=== PATIENT | female | born 1940 | race Caucasian/White ===

== ENCOUNTER 2022-12-16 14:57 | Outpatient (CLI) | payer MEDICARE, OTHER | END 2022-12-16 14:58 | disposition home or self-care (01) | LOC: DI 14:57 | PROVIDERS: ATTEND Physician Assistant Medical | DX: R01.1 Cardiac murmur, unspecified (principal); I51.7 Cardiomegaly | CPT/HCPCS: 93306 ==

== ENCOUNTER 2022-12-16 15:01 | Outpatient (CLI) | payer MEDICARE, OTHER ==
--- NOTE | 2022-12-17 08:36 | Ultrasound Report ---
PROCEDURE: Duplex Lwr Ext Arterial Bilat INDICATIONS: INTERMITTENT CLAUDICATION TECHNIQUE: Color and pulse Doppler interrogation was performed of both lower extremity arterial systems, with im age documentation. Limited exam secondary to atherosclerotic calcification. COMPARISON: None FINDINGS: Right lower extremity: Common femoral artery: 99.6 cm/sec, with triphasic flow. Deep femoral artery: 92 cm/sec, with biphasic flow. Proximal superficial femoral artery: 95.4 cm/sec, with biphasic flow. Mid superficial femoral artery (proximal/mid): 211.5/172.9 cm/sec, with biphasic/biphasic flow. Distal superficial femoral artery: 252 cm/sec, with biphasic flow. Popliteal artery: 59 cm/sec, with biphasic flow. Posterior tibial artery: 92 cm/sec, with biphasic flow. Anterior tibial artery/dorsalis pedis: 58.4/40.6 cm/sec, with biphasic/biphasic flow. Platt-scale imaging description: Scattered atherosclerotic calcification with stenoses. Left lower extremity: Common femoral artery: 96 cm/sec, with biphasic flow. Deep femoral artery: 78.6 cm/sec, with biphasic flow. Proximal superficial femoral artery: 129 cm/sec, with monophasic flow. Mid superficial femoral artery: 102 cm/sec, with monophasic flow. Scattered areas of biphasic flow. Distal superficial femoral artery: 38.1 cm/sec, with monophasic flow. Popliteal artery: 35.3 cm/sec, with monophasic flow. Posterior tibial artery: 27 cm/sec, with monophasic flow. Anterior tibial artery/dorsalis pedis: 61/9 cm/sec, with monophasic/monophasic flow. Platt-scale imaging description: Scattered atherosclerotic calcification with stenoses. A few collate rals below the knee. IMPRESSION: 1. Right lower extremity: -Stenosis of approximately 50-75% in the proximal to mid SFA with elevated velocity ratio of 2.2. -Elevated velocity in the distal SFA of 252 cm/sec is suggestive of an additional stenosis/turbulence . -Multiphasic waveforms with scattered atherosclerotic calcification with multifocal stenoses. 2. Left lower extremity: -No velocity shift to suggest a hemodynamically significant stenosis; however, predominantly monophas ic waveforms throughout the vasculature may represent sequela of aortoiliac inflow disease. -Scattered atherosclerotic calcification with multifocal stenoses and a few collaterals below the kne es suggestive of high-grade stenosis/occlusion. Consider a CTA lower extremity runoff for further evaluation. Reviewed by: Lisa Vergara MD on 12/17/2022 8:35 AM PDT Approved by: Lisa Vergara MD on 12/17/2022 8:35 AM PDT Station ID: [id number]
--- NOTE | 2022-12-17 09:02 | Ultrasound Report ---
PROCEDURE: Ankle Brachial Index INDICATIONS: INTERMITTENT CLAUDICATION TECHNIQUE: Ankle-brachial indices were obtained bilaterally and recorded. COMPARISONS: Same day lower extremity arterial duplex scan. FINDINGS: Right ankle brachial index (MARLENE): 0.9 Right brachial: 152 mmHg Right Ankle: 139 mmHg Left ankle brachial index (MARLENE): 0.6 Left brachial: 154 mmHg Left ankle: 106 mmHg Healing potential: Ankle pressures >55 mm Hg in non-diabetics and >80 mm Hg in diabetics are likely to achieve primary h ealing of ischemic foot ulcers. Toe pressures >30 mm Hg are likely to achieve primary healing of ischemic foot ulcers, toe or transme tatarsal amputations. IMPRESSION: 1. Right lower extremity resting MARLENE is borderline normal at 0.9, likely falsely elevated in the sett ing of calcified vessels. 2. Left lower extremity resting MARLENE is moderately reduced at 0.6, likely falsely elevated in the sett ing of calcified vessels. Reviewed by: Lisa Vergara MD on 12/17/2022 9:01 AM PDT Approved by: Lisa Vergara MD on 12/17/2022 9:01 AM PDT Station ID: [id number]
== END 2022-12-16 15:02 | disposition home or self-care (01) ==
LOC: DI 15:01
PROVIDERS: ATTEND Physician Assistant Medical
DX: I70.203 Unspecified atherosclerosis of native arteries of extremities, bilateral legs (principal); R01.1 Cardiac murmur, unspecified; I51.7 Cardiomegaly
CPT/HCPCS: 93306; 93922; 93925

== ENCOUNTER 2023-02-25 13:47 | Outpatient (CLI) | payer MEDICARE, OTHER ==
[2023-02-25 19:58] LABS: CREATININE 0.8 mg/dL (0.6-1.3); POTASSIUM 4.4 mmol/L (3.5-4.5)
[2023-02-25 20:58] LABS: ESTIMATED AVERAGE GLUCOSE 209 mg/dL (70-100); HEMOGLOBIN A1c% 8.9 % (4.27-6.07)
== END 2023-02-25 13:48 | disposition home or self-care (01) ==
LOC: LAB.S 13:47
PROVIDERS: ATTEND Physician Assistant Medical
DX: E11.9 Type 2 diabetes mellitus without complications (principal); Z79.4 Long term (current) use of insulin
CPT/HCPCS: 36415; 80048; 83036

== ENCOUNTER 2023-05-03 12:41 | Outpatient (CLI) | payer MEDICARE, OTHER ==
--- NOTE | 2023-05-04 09:01 | Mammography Report ---
BILATERAL DIGITAL DIAGNOSTIC MAMMOGRAM 3D/2D: 05/03/2023 CLINICAL: Palpable right breast lump. Due for bilateral exam. Comparison is made to exams dated: 12/08/2021 mammogram, 03/20/2019 mammogram, 03/22/2017 mammogram, mammogram, and 12/27/2013 mammogram - [facility]. There are scattered areas of fibroglandular density in both breasts (category b / 25%-50% glandular t issue). There is a focal asymmetry in the right breast at 4 o'clock posterior depth. This is seen in additio nal views. This correlates as palpated. There is an irregular mass with a spiculated margin in the left breast at 1 o'clock posterior depth. This is seen in additional views. No other significant masses or calcifications are seen in either breast. IMPRESSION: INCOMPLETE: NEEDS ADDITIONAL IMAGING EVALUATION The focal asymmetry in the right breast at 4 o'clock posterior depth is indeterminate. The irregular mass in the left breast at 1 o'clock posterior depth is indeterminate. A targeted ultrasound of the bilateral breasts is recommended and will be performed immediately follo wing this exam. Based on the Tyrer Cuzick model (a risk assessment model) the patient's lifetime risk is 1.8% and her 10 year risk is 0.0%. According to the ACR, ACS, and NCCN guidelines, an annual breast MRI exam elvira g with mammogram is recommended if the patient's lifetime risk is 20% or greater. This exam was interpreted at Station ID: [id number]. NOTE: For mammograms, a report in lay terms will be sent to the patient. Approximately 15% of breast malignancies will not be visualized mammographically. In the management of a palpable breast mass, a negative mammogram must not discourage biopsy of a clinically suspicious lesion. Electronically Signed By: Viridiana Thomas M.D. lk/:05/03/2023 13:34:05 ACR BI-RADS Category 0: Incomplete 3340F PARENCHYMAL PATTERN: (A) - The breast(s) demonstrate(s) scattered fibroglandular densities. BI-RADS CATEGORY: (0) - 0 Ultrasound [id number] Immediate follow-up LATERALITY: (B)
--- NOTE | 2023-05-04 09:01 | Ultrasound Report ---
LIMITED ULTRASOUND OF LEFT BREAST: 05/03/2023 CLINICAL: Patient returns today to evaluate a focal asymmetry in the left breast. Comparison is made to exams dated: 05/03/2023 mammogram - [facility], 12/08/2021 ma mmogram, 03/20/2019 mammogram, 03/22/2017 mammogram, 03/04/2015 mammogram, and 12/27/2013 mammogram - [facility]. Color flow ultrasound of the left breast 2 o'clock region was performed on the areas of interest. G ray scale images of the real-time examination were reviewed. There is a 0.6 cm irregular mass in the left breast at 2 o'clock middle depth. This irregular mass i s hypoechoic with posterior acoustic shadowing. This correlates as an incidental finding. There also is a stable 0.6 cm irregular mass in the left breast at 2 o'clock posterior depth. This i rregular mass is hypoechoic with posterior acoustic shadowing. This correlates with mammography find ings. The left axilla was interogated and normal appearing lymph nodes are visualized. IMPRESSION: SUSPICIOUS OF MALIGNANCY No left axillary adenopathy. The 0.6 cm irregular mass in the left breast at 2 o'clock middle depth is at a low suspicion for radha gnancy. An ultrasound guided biopsy is recommended. The stable 0.6 cm irregular mass in the left breast at 2 o'clock posterior depth is at a low suspicio n for malignancy. An ultrasound guided biopsy is recommended. This exam was interpreted at Station ID: [id number]. SUMMARY: This was discussed with the patient by the radiologist at the time of the exam. Electronically Signed By: Viridiana Thomas M.D. lk/:05/03/2023 14:49:09 Ultrasound BI-RADS: 4a Low suspicion for malignancy BI-RADS CATEGORY: (4a) - Low Susp Biopsy follow-up [id number] Immediate follow-up LATERALITY: (B)
--- NOTE | 2023-05-04 09:01 | Ultrasound Report ---
LIMITED ULTRASOUND OF RIGHT BREAST: 05/03/2023 CLINICAL: Palpable right breast lump. Comparison is made to exams dated: 05/03/2023 mammogram - , 12/08/2021 ma mmogram, 03/20/2019 mammogram, 03/22/2017 mammogram, 03/04/2015 mammogram, and 12/27/2013 mammogram - [facility]. Color flow ultrasound of the right breast 3 o'clock region was performed on the areas of interest. G ray scale images of the real-time examination were reviewed. There is a 0.7 cm x 0.5 cm x 0.7 cm oval cyst in the right breast at 3 o'clock posterior depth. This oval cyst is hypoechoic with a well-defined boundary, internal echoes, and posterior acoustic enhanc ement. A tract extends to the skin surface. This correlates as palpated and with mammography findings . Color flow imaging demonstrates that there is no vascularity present. IMPRESSION: BENIGN There is no sonographic evidence of malignancy. The 0.7 cm x 0.5 cm x 0.7 cm oval cyst in the right breast is consistent with a sebaceous cyst and is benign. Return to annual mammogram screening schedule is recommended. This exam was interpreted at Station ID: [id number]. Electronically Signed By: Viridiana Thomas M.D. lk/:05/03/2023 17:34:40 Ultrasound BI-RADS: 2 Benign BI-RADS CATEGORY: (2) - 2 RECOMMENDATION: (ANNUAL) - Recommend routine annual screening mammography. [id number] return to screening LATERALITY: (B)
== END 2023-05-03 12:42 | disposition home or self-care (01) ==
LOC: DI 12:41
PROVIDERS: ATTEND Physician Assistant Medical
DX: N60.01 Solitary cyst of right breast (principal); N63.21 Unspecified lump in the left breast, upper outer quadrant; R92.323 Mammographic fibroglandular density, bilateral breasts

== ENCOUNTER 2023-05-26 11:39 | Outpatient (CLI) | payer MEDICARE, OTHER ==
[2023-05-26 14:37] LABS: BASOPHILS # (AUTO) 0.1 10^3/uL (0.0-0.1); BASOPHILS % (AUTO) 1.3 %; EOSINOPHILS # (AUTO) 0.2 10^3/uL (0.0-0.7); EOSINOPHILS % (AUTO) 3.3 %; HCT - HEMATOCRIT 42.9 % (37.0-47.0); HGB - HEMOGLOBIN 13.3 g/dL (12.0-16.0); LYMPHOCYTES % (AUTO) 31.1 %; MEAN CORPUSCULAR HEMOGLOBIN 26.8 pg (27.0-31.0); MEAN CORPUSCULAR VOLUME 86.3 fL (81.0-99.0); MEAN PLATELET VOLUME 9.8 fL (7.9-10.8); MONOCYTES # (AUTO) 0.6 10^3/uL (0.0-1.0); MONOCYTES % (AUTO) 9.6 %; NEUTROPHILS # (AUTO) 3.5 10^3/uL (1.5-6.6); NEUTROPHILS % (AUTO) 54.4 %; PLT - PLATELET COUNT 500 10^3/uL (130-450); RED BLOOD COUNT 4.97 10^6/uL (4.20-5.40); RED CELL DISTRIBUTION WIDTH 15.3 % (12.0-15.0); WHITE BLOOD COUNT 6.4 x10^3/uL (4.8-10.8)
[2023-05-26 15:14] LABS: THYROID STIMULATING HORMONE 3.44 uIU/mL (0.34-5.60)
[2023-05-26 16:07] LABS: ALBUMIN 3.9 g/dL (3.2-5.5); ALBUMIN/GLOBULIN RATIO 1.3 (1.0-2.2); ALKALINE PHOSPHATASE 45 IU/L (42-121); ALT ALANINE AMINOTRANSFERASE 10 IU/L (10-60); AST ASPARTATE AMINOTRANSFERASE 14 IU/L (10-42); BILIRUBIN,TOTAL 0.5 mg/dL (0.2-1.0); BUN - BLOOD UREA NITROGEN 12 mg/dL (6-20); CALCIUM 10.2 mg/dL (8.5-10.3); CARBON DIOXIDE - CO2 23 mmol/L (21-32); CHLORIDE 107 mmol/L (101-111); CHOL/HDL RATIO 3.9 (<4.4); CHOLESTEROL 185 mg/dL; CREATININE 0.8 mg/dL (0.6-1.3); GFR - MDRD 69 (>89); GLUCOSE 132 mg/dL (74-104); HDL CHOLESTEROL 48 mg/dL; LDL CHOLESTEROL,CALCULATED 92 mg/dL; LDL/HDL RATIO 1.9 (<4.4); POTASSIUM 3.9 mmol/L (3.5-4.5); SODIUM 139 mmol/L (135-145); TOTAL PROTEIN 6.8 g/dL (6.4-8.9); TRIGLYCERIDES 224 mg/dL (48-352); VLDL CHOLESTEROL 45 mg/dL
[2023-05-26 20:25] LABS: ESTIMATED AVERAGE GLUCOSE 174 mg/dL (70-100); HEMOGLOBIN A1c% 7.7 % (4.27-6.07)
== END 2023-05-26 11:40 | disposition home or self-care (01) ==
LOC: LAB.S 11:39
PROVIDERS: ATTEND Physician Assistant Medical
DX: E11.9 Type 2 diabetes mellitus without complications (principal); E78.5 Hyperlipidemia, unspecified; Z79.4 Long term (current) use of insulin
CPT/HCPCS: 36415; 80053; 80061; 83036; 83721; 84443; 85025

== ENCOUNTER 2023-06-02 09:33 | Outpatient (CLI) | payer MEDICARE, OTHER ==
[~2023-06-02 09:33] MED LIST: LIDOCAINE 1%-EPI 1:100000 20 ML MDV ONE; LIDOCAINE-MPF 1% 5 ML VIAL ONE
[2023-06-02] MEDS: LIDOCAINE-MPF 1% 5 ML VIAL TD ONE (11:39)
[2023-06-02] MEDS: LIDOCAINE 1%-EPI 1:100000 20 ML MDV SUBQ ONE (11:40)
--- NOTE | 2023-06-03 09:42 | Mammography Report ---
UNILATERAL LEFT DIGITAL DIAGNOSTIC MAMMOGRAM 3D/2D WITH EXAGGERATED CC - LEFT BREAST POST-PROCEDURE I MAGING FOR MARKER PLACEMENT: 06/02/2023 CLINICAL: Post left breast ultrasound biopsy clip placement imaging. Comparison is made to exams dated: 05/03/2023 ultrasound, 05/03/2023 ultrasound, 05/03/2023 mammogram - [facility], 12/08/2021 mammogram - [facility], 06/02/2023 ultrasound biopsy, and 06/02/2023 ultrasound biopsy - [facility]. There are scattered areas of fibroglandular density in the left breast (category b / 25%-50% glandula r tissue). There is a Hydromark T3 marker clip in the appropriate position in the left breast at 2 o'clock poste rior depth. This marker clip placement is at the medial aspect of the biopsy site. There also is a Hydromark T4 marker clip in the appropriate position in the left breast at 1:30 o'fer ck middle depth. This marker clip placement is at the biopsy site. IMPRESSION: POST PROCEDURE MAMMOGRAM FOR MARKER PLACEMENT There was a successful Hydromark B1adwsna clip placement in the left breast at 2 o'clock posterior de pth, with clip at the medial border of the biopsy site. There was a successful Hydromark T4 marker clip placement in the left breast at 1:30 o'clock middle d epth. Based on the Tyrer Cuzick model (a risk assessment model) the patient's lifetime risk is 1.8% and her 10 year risk is 0.0%. According to the ACR, ACS, and NCCN guidelines, an annual breast MRI exam elvira g with mammogram is recommended if the patient's lifetime risk is 20% or greater. This exam was interpreted at Station ID: [id number]. NOTE: For mammograms, a report in lay terms will be sent to the patient. Approximately 15% of breast malignancies will not be visualized mammographically. In the management of a palpable breast mass, a negative mammogram must not discourage biopsy of a clinically suspicious lesion. Electronically Signed By: Marco Antonio Boudreaux M.D. ar/:06/02/2023 22:09:17 ACR BI-RADS Category Post-procedure mammogram for marker placement PARENCHYMAL PATTERN: (A) - The breast(s) demonstrate(s) scattered fibroglandular densities. BI-RADS CATEGORY: () - Unspecified - other recall n/a LATERALITY: (B)
--- NOTE | 2023-06-08 07:37 | Ultrasound Report ---
ULTRASOUND GUIDED BIOPSY LEFT BREAST USING VACUUM DEVICE WITH MARKING DEVICE INSERTED AND POST DIGITA L MAMMOGRAPHIC IMAGIN06/02/2023 CLINICAL: Left breast mass. PATIENT CONSENT: Risks (minor bleeding, infection, vasovagal reaction and repeat procedure), benefits and alternatives were explained to the patient and written informed consent was obtained. Correlation is made to exams dated: 05/03/2023 ultrasound, 05/03/2023 mammogram - [facility], 12/08/2021 mammogram, 03/20/2019 mammogram, and 03/22/2017 mammogram - [facility]. Separate biopsies were performed for two adjacent masses seen on the prior ultrasound. For clarity, t he more posterior lesion is described at the 2:00 position posterior depth and the more superficial a nd medial lesion is described at the 1:30 position anterior/middle depth. An ultrasound guided biopsy using real-time ultrasound was performed for the 0.5 cm x 0.7 cm x 0.3 cm solid mass located in the left breast at 1:30 o'clock middle depth 6 cm from the nipple. This was d escribed on the previous mammography and ultrasound reports. The skin was prepped in the usual maxi r. Local anesthetic was administered to the access site. A skin raquel was made in the breast. The a bnormality was approached from the lateral aspect. A 13 gauge biopsy needle was placed adjacent to t he abnormality under ultrasound guidance. Once the needle was documented to be in the correct locati on, four specimens were obtained using the Mammotome biopsy system. A Hydromark T4 marker clip was i nserted into the biopsy cavity. A sterile dressing was applied to the access site. Post procedure d igital mammographic imaging demonstrates the location device at the targeted area. The specimens wer e sent to the laboratory for pathological analysis. IMPRESSION: ULTRASOUND GUIDED BIOPSY BENIGN Ultrasound guided biopsy of the 0.5 cm x 0.7 cm x 0.3 cm solid mass in the left breast at 1:30 o'cloc k middle depth 6 cm from the nipple was successful with no apparent post procedure complications. Pathology revealed benign dense stromal fibrosis, which is concordant with imaging. Patient has ipsil ateral breast cancer at 2 o'clock, 6 cm from the nipple at posterior depth. Please see separately dic tated same day biopsy report for further details. This exam was interpreted at Station ID: [id number]. Marco Antonio Boudreaux M.D. Yessenia Raymond M.D., Ph.D. jam lozada/:06/07/2023 15:51:34 BI-RADS CATEGORY: () - Unspecified - other recall n/a LATERALITY: (B)
--- NOTE | 2023-06-08 07:37 | Ultrasound Report ---
ULTRASOUND GUIDED BIOPSY LEFT BREAST USING VACUUM DEVICE WITH MARKING DEVICE INSERTED AND POST DIGITA L MAMMOGRAPHIC IMAGIN06/02/2023 CLINICAL: Left breast mass. PATIENT CONSENT: Risks (minor bleeding, infection, vasovagal reaction and repeat procedure), benefits and alternatives were explained to the patient and written informed consent was obtained. Correlation is made to exams dated: 05/03/2023 ultrasound, 05/03/2023 mammogram - [facility], 12/08/2021 mammogram, and 03/20/2019 mammogram - [facility]. Separate biopsies were performed for two adjacent masses seen on the prior ultrasound. For clarity, t he more posterior lesion is described at the 2:00 position posterior depth and the more superficial a nd medial lesion is described at the 1:30 position anterior/middle depth. An ultrasound guided biopsy using real-time ultrasound was performed for the 0.6 cm x 0.5 cm x 0.5 cm mass located in the left breast at 2 o'clock posterior depth 6 cm from the nipple. This was describ ed on the previous mammography and ultrasound reports. The skin was prepped in the usual manner. Lo toi anesthetic was administered to the access site. A skin raquel was made in the breast. The abnorma lity was approached from the lateral aspect. A 13 gauge biopsy needle was placed adjacent to the abn ormality under ultrasound guidance. Once the needle was documented to be in the correct location, fo ur specimens were obtained using the Mammotome biopsy system. A Hydromark T3 marker clip was inserte d into the biopsy cavity. A sterile dressing was applied to the access site. Post procedure digital mammographic imaging demonstrates the location device at the targeted area. The specimens were sent to the laboratory for pathological analysis. IMPRESSION: ULTRASOUND GUIDED BIOPSY MALIGNANT Ultrasound guided biopsy of the 0.6 cm x 0.5 cm x 0.5 cm mass in the left breast at 2 o'clock posteri or depth 6 cm from the nipple was successful with no apparent post procedure complications. 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 Recom mend surgical and oncological consultation. This exam was interpreted at Station ID: [id number]. Marco Antonio Boudreaux M.D. Yessenia Raymond M.D., Ph.D. jam lozada/:06/07/2023 15:47:48 BI-RADS CATEGORY: () - Unspecified - other recall n/a LATERALITY: (B)
== END 2023-06-02 09:34 | disposition home or self-care (01) ==
LOC: DI 09:33
PROVIDERS: ATTEND Physician Assistant Medical
DX: R92.322 Mammographic fibroglandular density, left breast (principal); N60.32 Fibrosclerosis of left breast; C50.412 Malignant neoplasm of upper-outer quadrant of left female breast; Z17.0 Estrogen receptor positive status [ER+]
CPT/HCPCS: 19083; 19084

== ENCOUNTER 2023-06-28 06:42 | Day surgery (SDC) | payer MEDICARE, OTHER ==
[~2023-06-28 06:42] MED LIST changes: -LIDOCAINE 1%-EPI 1:100000 20 ML MDV ONE
[2023-06-28] MEDS ORDERED: ceFAZolin 2 GM VIAL ONE (07:03)
[2023-06-28] MEDS ORDERED: PROPOFOL 200 MG/20 ML VIAL IVP ONE (09:18)
[2023-06-28] MEDS ORDERED: fentaNYL 100 MCG/2 ML VIAL ONE (09:19)
[2023-06-28] MEDS: ACETAMINOPHEN 500 MG TABLET PO ONE (09:24)
--- NOTE | 2023-06-28 10:20 | ANESTHESIA ---
Pre-Anesthesia VS, & Labs - Diagnosis Left invasive ductal carcinoma - Procedure left breast lumpectomy with wire localization Vital Signs: Temp Pulse Resp BP Pulse Ox O2 Flow Rate 36.8 C 78 13 167/79 H 96 06/28/23 07:27 06/28/23 07:27 06/28/23 07:27 06/28/23 07:27 06/28/23 07:27 Height: 5 ft Weight (kg): 84.5 kg Body Mass Index: 36.3 BMI Classification: Obese - NPO >8 hours - Is Patient ?: No - Lab Results Current Lab Results: Laboratory Tests 06/28/23 07:33: POC Whole Bld Glucose 148 H Home Medications and Allergies Home Medications: Ambulatory Orders Aspirin [Vazalore] 81 mg PO DAILY 06/22/23 Atorvastatin [Lipitor] 20 mg PO QPM 06/22/23 Benazepril HCl [Lotensin] 40 mg PO DAILY 06/22/23 FLUoxetine [PROzac] 30 mg PO DAILY 06/22/23 Fenofibrate [Lipofen] 50 mg PO DAILY 06/22/23 Insulin Aspart [Novolog Flexpen] 15 units SUBQ QID 06/22/23 Insulin Glargine,Hum.rec.anlog [Basaglar Kwikpen U-100] 30 unit SUBQ HS 06/22/23 Omeprazole 20 mg PO BID 06/22/23 amLODIPine [Norvasc] 10 mg PO DAILY 06/22/23 metFORMIN [Glucophage] 500 mg PO BID 06/22/23 Aspirin [Vazalore] 81 mg PO DAILY 06/22/23 Atorvastatin [Lipitor] 20 mg PO QPM 06/22/23 Benazepril HCl [Lotensin] 40 mg PO DAILY 06/22/23 FLUoxetine [PROzac] 30 mg PO DAILY 06/22/23 Fenofibrate [Lipofen] 50 mg PO DAILY 06/22/23 Insulin Aspart [Novolog Flexpen] 15 units SUBQ QID 06/22/23 Insulin Glargine,Hum.rec.anlog [Basaglar Kwikpen U-100] 30 unit SUBQ HS 06/22/23 Omeprazole 20 mg PO BID 06/22/23 amLODIPine [Norvasc] 10 mg PO DAILY 06/22/23 metFORMIN [Glucophage] 500 mg PO BID 06/22/23 Allergies/Adverse Reactions: Allergies Allergy/AdvReac Type Severity Reaction Status Date / Time Penicillins Allergy Unknown Verified 06/28/23 07:33 tetracycline Allergy Unknown Verified 06/28/23 07:33 morphine AdvReac Hallucinati Verified 06/22/23 10:05 ons pregabalin [From Lyrica] AdvReac Edema Verified 06/28/23 07:32 Anes History & Medical History - Anesthetic History Anesthesia Complications: reports: No previous complications - Medical History Cardiovascular: reports: Hypertension, High cholesterol, Murmur Pulmonary: reports: Sleep apnea (does not use cpap) Gastrointestinal: reports: GERD, Pancreatitis, Ulcerative colitis Urinary: reports: None Neuro: reports: None Musculoskeletal: reports: Osteoarthritis, Osteoporosis Endocrine/Autoimmune: reports: Type 2 diabetes Skin: reports: Rosacea Smoking Status: Never smoker Psychosocial: reports: No issues indicated History of Cancer?: Yes - Surgical History Eyes Ears Nose Throat (EENT): reports: Tonsil/Adenoidectomy Gynecologic: reports: section Results - Echo Results Echo Results: Report reviewed Exam General: Alert, Oriented x3, Cooperative, No acute distress Dental: WNL Mouth Openin Fingerbreadth Neck Mobility: Normal Mallampati classification: II Thyromental Distance: 4-6 cm Mental/Cognitive Status: Alert/Oriented X3, Normal for patient Plan Anesthesia Type: General Consent for Procedure(s) Verified and Reviewed: Yes Code Status: Attempt Resuscitation ASA classification: 3-Severe systemic disease Is this case an emergency?: No
[2023-06-28] MEDS ORDERED: fentaNYL 100 MCG/2 ML VIAL IVP PRN (10:22)
[2023-06-28] MEDS ORDERED: ONDANSETRON 4 MG/2 ML VIAL IVP PRN ×2 (10:22→12:49)
[2023-06-28] MEDS ORDERED: ATROPINE ABBOJECT 1 MG/10 ML SYRINGE IVP PRN (10:22)
[2023-06-28] MEDS ORDERED: HYDROmorphone 0.5 MG/0.5 ML SYRINGE IVP PRN ×2 (10:22→12:49)
[2023-06-28] MEDS ORDERED: NALOXONE 0.4 MG/ML VIAL IVP PRN (10:22)
[2023-06-28] MEDS ORDERED: SUCCINYLCHOLINE 200 MG/10 ML VIAL ONE (10:41)
[2023-06-28] MEDS ORDERED: PHENYLEPHRINE HCL 0.5 MG/5 ML AMPULE ONE (10:42)
[2023-06-28] MEDS ORDERED: LIDOCAINE 1%-EPI 1:100000 20 ML MDV ONE (10:45)
[2023-06-28] MEDS ORDERED: BUPIVACAINE 0.5% PF 10 ML VIAL ONE (10:45)
[2023-06-28] MEDS ORDERED: LACTATED RINGERS 1,000 ML IV SCH (11:00)
[2023-06-28] MEDS ORDERED: ePHEDrine 50 MG/ML VIAL IVP ONE (11:20)
[2023-06-28] MEDS ORDERED: HYDROmorphone 1 MG/ML CARPUJECT ONE (12:10)
[2023-06-28] MEDS: LIDOCAINE 1%-EPI 1:100000 50 ML VIAL SUBQ ONE ×2 (12:21)
[2023-06-28] MEDS: BUPIVACAINE 0.5% PF 30 ML VIAL INFIL ONE ×2 (12:21)
[2023-06-28] MEDS ORDERED: ONDANSETRON 4 MG/2 ML VIAL ONE (12:25)
[2023-06-28] MEDS: LACTATED RINGERS 1,000 ML IV ONE (12:43)
[2023-06-28] MEDS ORDERED: ACETAMINOPHEN 325 MG TABLET PO PRN (12:49)
[2023-06-28] MEDS ORDERED: oxyCODONE 5 MG TABLET PO PRN (12:49)
--- NOTE | 2023-06-28 12:58 | OPERATIVE REPORT ---
Operative Report - General Procedure Date: 06/28/23 Planned Procedure: left wire localized lumpectomy Pre-Op Diagnosis: invasive ductal carcinoma Procedure Performed: left wire localized lumpectomy Post Op Diagnosis: invasive ductal carcinoma - Procedure Note Primary Surgeon: Dr. Jessica Shabazz Anesthesia Provider: Keshia Camarillo CRNA Anesthesia Technique: General LMA, Local Pathology: 1.left lumpectomy, oriented short superior, long lateral, double anterior 2. re excision of anterior margin, oriented short superior, long lateral, double new anterior margin 3. re excision of medial margin, oriented short superior, long anterior, double new medial margin Estimated Blood Loss (mL): 10 Drain/Tube Type: Abebe Chavez round drain (left) Indications: The patient went in for her normal yearly mammogram and was found to have a mass in her left breast. Subsequent studies revealed this as an invasive ductal carcinoma. The patient was seen and evaluated in the clinic we discussed lumpectomy versus mastectomy. This is a small tumor with low-grade histology. Given the patient's age and medical comorbidities a sentinel lymph node biopsy was not feel to be necessary as it would not impact her overall treatment plan. We discussed the risks, benefits, and alternatives of lumpectomy including bleeding, infection, damage to surrounding structures, positive margins requiring reexcision, numbness in the area, and the possible need for further surgeries or procedures. The patient voiced understanding, her questions were answered, and she wished to proceed. A consent was signed by the patient prior to surgery. Findings: 1. Left lumpectomy, 2 clips present on mammogram 2. Reexcision of anterior margin which was palpably close on inspection of the lumpectomy specimen 3. Reexcision of medial margin where a palpable mass was noted on inspection of the lumpectomy cavity Complications: None - Other Other Information/Narrative: The patient was taken to the operating room and placed in the supine position. Preop antibiotics were given. ERAS medications were given. The patient was prepped and draped in the usual sterile fashion. A preop surgical timeout was performed. Attention was turned to the patient's left breast. An incision was made which incorporated the wire, following the patient's skin folds, at the 3 o'clock position. Skin flaps were raised superiorly and inferiorly to the incision. The dissection was carried down to the thick part of the wire using electrocautery. At this point, serrated scissors were used to perform a lumpectomy staying approximately 1 cm away from the wire in superior, inferior, and anterior dimensions, 3 cm away medially, and 2 cm posteriorly. The lumpectomy specimen was removed and oriented with suture on the back table. The specimen was sent to mammography and 2 biopsy clips were confirmed to be within the specimen.on inspection of the lumpectomy specimen, the anterior margin was close, and reexcised. The specimen was oriented and sent as a separate specimen labeled reexcision of anterior margin. The edges of the lumpectomy cavity were inspected was a palpable finding along the medial aspect, so an additional medial margin was reexcised and oriented on the back table. Additional inspection of the lumpectomy cavity revealed no palpable findings. Hemostasis was confirmed. The lumpectomy cavity was irrigated with warm normal saline. Clips were placed in the superior, inferior, medial, lateral, anterior, and posterior margins of the lumpectomy cavity. A 7 Spanish GIANCARLO drain was placed in the lumpectomy cavity due to its size. This was sewn into place using a 3-0 nylon suture. The deep dermal tissues were closed with 3-0 Vicryl in an interrupted fashion. The skin was closed with 4-0 Monocryl in a running subcuticular fashion and a sterile dressing of skin glue was placed. The patient tolerated the procedure well. There were no complications. Synoptic Breast SNB - [place] Node Biopsy Operation performed with curative intent: Yes Tracer(s) used to identify sentinel nodes in the upfront surgery (non- neoadjuvant) setting (select all that apply): Other (with explanation) (No sentinel lymph node biopsy was done as the results were felt to be unlikely to contribute to the patient's overall course of treatment.) Tracer(s) used to identify sentinel nodes in the neoadjuvant setting (select all that apply): N/A All nodes (colored or non-colored) present at the end of a dye-filled lymphatic channel were removed: N/A All significantly radioactive nodes were removed: N/A All palpably suspicious nodes were removed: N/A Biopsy-proven positive nodes marked with clips prior to chemotherapy were identified and removed: N/A
[2023-06-28 13:05] VITALS: O2SAT 95
[2023-06-28 13:35] VITALS: BP 150/62
[2023-06-28] MEDS: LIDOCAINE-MPF 1% 5 ML VIAL TD ONE (15:01)
--- NOTE | 2023-06-28 19:24 | ANESTHESIA POST OP EVALUATION ---
Anesthesia Post Eval - Post Anesthesia Eval Vitals: Last Vital Signs Temp 36.4 C L 06/28/23 13:03 Pulse 90 06/28/23 13:29 Resp 16 06/28/23 13:29 BP 150/62 H 06/28/23 13:29 Pulse Ox 95 06/28/23 13:29 O2 Flow Rate CV Function Including HR & BP: Stable Pain Control: Satisfactory Nausea & Vomiting: Negative Mental Status: Baseline Respiratory Status: Airway Patent Hydration Status: Satisfactory Anesthesia Complications: None
--- NOTE | 2023-06-29 08:45 | Mammography Report ---
UNILATERAL LEFT DIGITAL DIAGNOSTIC MAMMOGRAM WITH MEDIOLATERAL OBLIQUE - LEFT BREAST POST-PROCEDURE I MAGING FOR MARKER PLACEMENT: 06/28/2023 CLINICAL: Left breast wire placement. Comparison is made to exam dated: 06/02/2023 mammogram - [facility]. There are scattered areas of fibroglandular density in the left breast (category b / 25%-50% glandula r tissue). There are two marker clips in the appropriate position in the left breast at 2 o'clock posterior dept h. Localize wire tip is resting adjacent to the deeper biopsy clip at 2 o'clock posterior depth. IMPRESSION: POST PROCEDURE MAMMOGRAM FOR MARKER PLACEMENT There was a successful localize wire placement in the left breast posterior depth with tip of the wir e adjacent to the biopsy marker clips. This exam was interpreted at Station ID: [id number]. NOTE: For mammograms, a report in lay terms will be sent to the patient. Approximately 15% of breast malignancies will not be visualized mammographically. In the management of a palpable breast mass, a negative mammogram must not discourage biopsy of a clinically suspicious lesion. Electronically Signed By: George Moon M.D. jl/:06/28/2023 17:27:50 ACR BI-RADS Category Post-procedure mammogram for marker placement PARENCHYMAL PATTERN: (A) - The breast(s) demonstrate(s) scattered fibroglandular densities. BI-RADS CATEGORY: () - Unspecified - other recall n/a LATERALITY: (B)
--- NOTE | 2023-06-29 08:45 | Ultrasound Report ---
ULTRASOUND GUIDED WIRE LOCALIZATION LEFT BREAST WITH POST DIGITAL MAMMOGRAPHIC IMAGIN06/28/2023 CLINICAL: Left breast wire localization. Correlation is made to exams dated: 06/02/2023 ultrasound biopsy, 06/02/2023 ultrasound biopsy, 024 mammogram, 05/03/2023 ultrasound, 05/03/2023 mammogram - [facility], and 12/09/19 mammogram - [facility]. A wire localization using ultrasound guidance was performed for the marker clip located in the left b reast at 2 o'clock middle depth. This was described on the previous ultrasound report. The skin was prepped in the usual manner. Local anesthetic was administered to the access site. The localizatio n was approached from the lateral aspect. A wire was inserted into the targeted area under ultrasoun d guidance. A sterile dressing was applied to the access site. Post placement digital mammographic imaging demonstrates the tip demarcates the boundaries of the targeted area. IMPRESSION: WIRE LOCALIZATION Wire localization for the marker clip in the left breast at 2 o'clock middle depth was successful wit h no apparent post procedure complications. This exam was interpreted at Station ID: [id number]. George hagan/colette:06/28/2023 17:20:48 BI-RADS CATEGORY: () - RECOMMENDATION: (ADDMAM) - Recommend additional mammographic views. recall n/a LATERALITY: (B)
--- NOTE | 2023-06-29 08:45 | Mammography Report ---
SPECIMEN LEFT BREAST: 06/28/2023 CLINICAL: Left breast specimen. Correlation is made to exam dated: 06/28/2023 mammogram - [facility]. A lumpectomy specimen was imaged for the previous biopsy site located in the left breast at 2 o'cloc k posterior depth. This was described on the previous ultrasound report. IMPRESSION: SPECIMEN The imaged specimen includes biopsy clips and the distal portion of the localization wire. The speci men shows characteristics of the mammographic findings. This exam was interpreted at Station ID: [id number]. George Moon M.D. jl/:06/28/2023 17:29:47 BI-RADS CATEGORY: () - Unspecified - other recall n/a LATERALITY: (B)
== END 2023-06-28 06:43 | disposition home or self-care (01) ==
LOC: SDS 06:42
PROVIDERS: ATTEND Surgery
PROC: 0HBU0ZZ Excision of Left Breast, Open Approach (ICD-10-PCS; principal; 2023-06-28 10:00)
DX: C50.412 Malignant neoplasm of upper-outer quadrant of left female breast (principal); E66.9 Obesity, unspecified; I10 Essential (primary) hypertension; Z17.0 Estrogen receptor positive status [ER+]; E11.9 Type 2 diabetes mellitus without complications; Z79.84 Long term (current) use of oral hypoglycemic drugs; Z79.4 Long term (current) use of insulin; Z68.36 Body mass index [BMI] 36.0-36.9, adult
CPT/HCPCS: 19285; 19301; 76098; 77065; A9270; J0330; J1170; J2372; J3490; J7120

== ENCOUNTER 2023-07-12 08:00 | Outpatient (CLI) | payer MEDICARE, OTHER ==
--- NOTE | 2023-07-12 17:37 | XRAY Report ---
PROCEDURE: Foot 1-2V LT INDICATIONS: CONTUSTION LEFT ANKLE/FOOT TECHNIQUE: 3 views of the foot were acquired. COMPARISON: None. FINDINGS: Bones: No fractures or dislocations. No suspicious bony lesions. Plantar and posterior calcaneal sp urring. Soft tissues: No tibiotalar joint effusion. Achilles tendon appears normal. Small vessel calcificat ions typically indicate long-standing diabetes. IMPRESSION: No acute bony abnormality. Reviewed by: James Manuel MD on 07/12/2023 5:36 PM PDT Approved by: James Manuel MD on 07/12/2023 5:36 PM PDT Station ID: [id number]
--- NOTE | 2023-07-12 17:38 | XRAY Report ---
PROCEDURE: Ankle 3+V LT INDICATIONS: CONTUSTION LEFT ANKLE/FOOT TECHNIQUE: 3 views of the ankle were acquired. COMPARISON: Left foot from the same date. FINDINGS: Bones: No fractures or dislocations. Ankle mortise is normally aligned. No suspicious bony lesions . Soft tissues: No tibiotalar joint effusion. Achilles tendon appears normal. Lateral soft tissue sw elling IMPRESSION: No acute bony abnormality. Lateral ankle sprain. If there remains a high clinical concern for fractur e, consider cross-sectional imaging now. If pain persists, consider repeat x-ray in 10-14 days or microbiology quality control technician ss-sectional imaging. Reviewed by: James Manuel MD on 07/12/2023 5:36 PM PDT Approved by: James Manuel MD on 07/12/2023 5:36 PM PDT Station ID: [id number]
== END 2023-07-12 23:59 | disposition home or self-care (01) ==
LOC: DI.S 08:00
PROVIDERS: ATTEND Physician Assistant Medical
DX: S93.402A Sprain of unspecified ligament of left ankle, initial encounter (principal); M77.32 Calcaneal spur, left foot

== ENCOUNTER 2023-07-18 19:47 | Emergency (ER) | payer MEDICARE, OTHER ==
--- NOTE | 2023-07-18 22:54 | ED Physician Documentation ---
History of Present Illness - Stated complaint Stated Complaint: L LEG PX - Chief complaint Chief Complaint: Ext Problem - History obtained from History obtained from: Patient - Additonal information Additional information: HPI from patient. Patient complains of the left lower leg pain, swelling. The patient had sudden onset of left foot and ankle pain due to an injury sustained approximately 2 weeks ago. She was seen in the outpatient setting for this injury and had x- rays of the left foot and ankle. Aside from soft tissue swelling noted of the lateral aspect of left ankle, there was no evidence of acute injury. Pain initially improved, but she subsequently developed more generalized aching discomfort with subtle swelling from the mid-level of her lower leg to her left foot. Pain is exacerbated with palpation, weightbearing. She denies chest pain, shortness of breath. No history of blood clots. 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 HEENT: Tonsil/Adenoidectomy - Present Medications Home Medications: Ambulatory Orders Medication Instructions Recorded Confirmed Aspirin [Vazalore] 81 mg PO DAILY 06/22/23 07/18/23 Atorvastatin [Lipitor] 20 mg PO QPM 06/22/23 07/18/23 Benazepril HCl [Lotensin] 40 mg PO DAILY 06/22/23 07/18/23 FLUoxetine [PROzac] 30 mg PO DAILY 06/22/23 07/18/23 Fenofibrate [Lipofen] 54 mg PO DAILY 06/22/23 07/18/23 Insulin Aspart [Novolog Flexpen] 15 units SUBQ QID PRN 06/22/23 07/18/23 Insulin Glargine,Hum.rec.anlog 30 unit SUBQ HS 06/22/23 07/18/23 [Basaglar Kwikpen U-100] Omeprazole 20 mg PO BID 06/22/23 07/18/23 amLODIPine [Norvasc] 10 mg PO DAILY 06/22/23 07/18/23 metFORMIN [Glucophage] 500 mg PO BID 06/22/23 07/18/23 traMADol [Ultram] 50 mg PO Q4-6H PRN #14 tablet 07/19/23 - Allergies Allergies/Adverse Reactions: Allergies Allergy/AdvReac Type Severity Reaction Status Date / Time Penicillins Allergy Unknown Verified 07/18/23 20:14 tetracycline Allergy Unknown Verified 07/18/23 20:14 morphine AdvReac Hallucinati Verified 07/18/23 20:14 ons pregabalin [From Lyrica] AdvReac Edema Verified 07/18/23 20:14 - Social History Does the pt smoke?: No Smoking Status: Never smoker Does the pt drink ETOH?: No Does the pt have substance abuse?: No - Immunizations Immunizations are current?: Yes - POLST Patient has POLST: No PD ED PE NORMAL - Vitals Vital signs reviewed: Yes - General General: Alert and oriented X 3, No acute distress, Well developed/nourished - Derm Derm: Normal color - Extremities Extremities: No tenderness to palpate, Normal ROM s pain PD ED PE EXPANDED - Extremities CARLA LE visual: 1 - swelling (subtle circumferential edema which is only notable when compared to RLE) Results - Vitals Vitals: Oxygen O2 Source Room air - Rads (name of study) LLE venous US Relevant Findings:: Prelim report reviewed, See rad report PD Medical Decision Making - ED course Complexity details: reviewed results, re-evaluated patient, considered differential, d/w patient ED course: Left lower extremity venous ultrasound demonstrates a [id number] DVT in the posterior tibial vein. We had a long discussion regarding whether or not anticoagulation is indicated/recommended. Factors considered that argue against anticoagulation (with either warfarin or DOAC) include that this is a provoked DVT, that it is limited to the calf veins (posterior tibial vein), that the symptoms are mild and physical exam findings are subtle. Risk factors for major bleeding with anticoagulant therapy include age >75 and DM. Another risk factor for major bleeding with anticoagulant is cancer, although not necessarily risk for this patient: she says she had a lumpectomy 06/28/23 for malignancy but was told the margins were cancer-free. In the balance, I recommended against anticoagulation to this patient and she expresses understanding of, and agreement with, this approach. I emphasized the need for follow-up with PCP as soon as can be arranged. She will likely need outpatient surveillance ultrasounds of the left lower extremity to screen for extension of the DVT. I also emphasized importance of having a low threshold for return to the emergency department for any worsening of her symptoms in cluding increasing pain, increasing swelling. Departure - Departure Disposition: Home, Self Care Clinical Impression: DVT (deep venous thrombosis) Qualifiers: DVT location: lower extremity Affected thrombotic vein of extremity: tibial Chronicity: acute Laterality: left Qualified Code(s): I82.442 - Acute embolism and thrombosis of left tibial vein Condition: Good Instructions: ED DVT Prescriptions: traMADol [Ultram] 50 mg PO Q4-6H PRN #14 tablet PRN Reason: Pain 5-7 Comments: The ultrasound does show a deep venous thrombosis ("blood clot") in your left lower leg (below the knee). This represents a lower risk for a pulmonary embolism compared to clots at/above the knee (pulmonary embolism is the most concerning potential complication of a DVT which is when the clot breaks off from the leg vein and becomes lodged in the arteries of the lung). Generally, a strong blood thinner (such as Coumadin/warfarin, Eliquis, Xarelto) is recommended in this situation. However, as we discussed, you have a few risk factors for complications that can arise from such blood thinners (specifically serious bleeding events). Weighing the various elements of risk and benefit of t reatment of your clot with strong blood thinners versus holding off on such treatment, I am recommending no blood thinners at this point except for a daily 325mg aspirin. A critical component off further evaluation and management of your blood clot is serial ultrasounds of your leg (to monitor worsening or improvement in the clot, which can help guide further management recommendations). Contact your primary care provider's office as soon as the office is next open to arrange for immediate follow-up appointment. As we discussed, there are no definitive outpatient ultrasound protocols for this situation, but many of them start with an ultrasound one week after the initial ultrasound (the one performed tonight in the emergency department) and again two weeks after the initial ultrasound. It would also be advantageous for you to follow-up with your primary care provider to reexplore risks versus benefits of a strong blood thinner. I have electronically submitted a prescription for tramadol (narcotic/opiate pain medication) to the [facility] pharmacy in [place]. I am prescribing a short course of narcotic pain medication for you. These are potentially dangerous and addictive medications that should be used carefully. These medications may constipate you. Take an vzks-rml-muauuet stool softener (docusate) twice daily with plenty of water while taking these medications. If you go 24 hours without a bowel movement, take ewsh-tbo-rizqztz miralax, per package instructions. Do not drink or drive while taking these medications. If you received narcotic or sedating medications while in the emergency department, do not drive for 24 hours. Store this medication in a safe, secure place and out of reach of children. It is a violation of federal law to give or sell this medication to another person or to use in a manner other than prescribed. The ED will not refill narcotic prescriptions, including prescriptions lost or stolen. To dispose of unwanted medications: 1. [facility] at [address] in [place] has a medication drop box. They accept prescription medications (in pill form) Wednesday through Wednesday 9:00 a.m. to 5:00 p.m. 2. The [facility] [employer] accepts prescription medications (in pill form only) for disposal year round. Call for more information. 3. Contact the [facility] for the next [facility] sponsored prescription drug collection event. , [phone], or [phone]; Discharge Date/Time: 07/19/23 01:52
--- NOTE | 2023-07-18 23:15 | Ultrasound Report ---
PROCEDURE: Duplex Ext Veins Left INDICATIONS: atraumatic pain, swelling TECHNIQUE: Real-time imaging, as well as color and pulse Doppler interrogation, were performed of the lower extr emity deep veins from the inguinal ligament to the popliteal fossa. Attempted visualization of the ca lf veins was performed. COMPARISON: None. FINDINGS: The left common femoral, superficial femoral, and popliteal veins are normally compressible , and free of intraluminal thrombus. Color and pulse Doppler demonstrate normal phasic intraluminal flow. There is normal augmentation response to distal compression maneuver. Intraluminal filling defects are noted within mid to distal posterior tibial vein with poor compressi bility and absence of flow. IMPRESSION: Venous thrombosis involving mid to distal posterior tibial vein within left calf. No DVT and rest of the left lower extremity veins. Reviewed by: George Streeter MD on 07/18/2023 11:13 PM PDT Approved by: George Streeter MD on 07/18/2023 11:13 PM PDT Station ID: [id number]
[2023-07-19] MEDS: ACETAMINOPHEN 500 MG TABLET PO STA (01:36)
[2023-07-19 02:01] VITALS: BP 141/67; O2SAT 97
== END 2023-07-19 01:52 | disposition home or self-care (01) ==
LOC: ED 19:47
DX: I82.442 Acute embolism and thrombosis of left tibial vein (principal); I10 Essential (primary) hypertension; E78.00 Pure hypercholesterolemia, unspecified; E11.9 Type 2 diabetes mellitus without complications; Z79.899 Other long term (current) drug therapy; Z79.4 Long term (current) use of insulin; Z79.84 Long term (current) use of oral hypoglycemic drugs
CPT/HCPCS: 99284

== ENCOUNTER 2023-07-21 17:33 | Emergency (ER) | payer MEDICARE, OTHER ==
--- NOTE | 2023-07-21 18:10 | ED Physician Documentation ---
History of Present Illness - Stated complaint Stated Complaint: L LEG PX - Chief complaint Chief Complaint: Ext Problem - Additonal information Additional information: 82-year-old female Presents with concerns about left leg pain. She was seen here a few days ago and diagnosed with a DVT. After discussion with the ED physician Anticoagulation and note risk versus benefits of medication, she was not started on anticoagulation other than a full dose aspirin. The patient then followed up with her oncologist today, And states that her oncologist strongly recommended that she do start taking oral anticoagulation and that she was ordered Eliquis with a loading dose however apparently declined according to the pharmacy, the loading dose was not approved and require prior authorization as the patient is here now wondering what to do about getting started on anticoagulation. She is also noticing mild increase in swelling of the left lower leg, no erythema, no fever. She has no chest pain, no difficulty breathing. PD PAST MEDICAL HISTORY - Past Medical History Past Medical History: Yes Cardiovascular: Hypertension, High cholesterol, Murmur Respiratory: Sleep apnea Neuro: None Endocrine/Autoimmune: Type 2 diabetes GI: GERD, Pancreatitis, Ulcerative colitis : None HEENT: Chronic hearing loss Psych: Depression, Anxiety Musculoskeletal: Osteoarthritis, Osteoporosis Derm: Rosacea - Past Surgical History Past Surgical History: Yes /[employer]: section HEENT: Tonsil/Adenoidectomy - Present Medications Home Medications: Ambulatory Orders Medication Instructions Recorded Confirmed Aspirin [[place]] 81 mg PO DAILY 06/22/23 07/18/23 Atorvastatin [Lipitor] 20 mg PO QPM 06/22/23 07/18/23 Benazepril HCl [Lotensin] 40 mg PO DAILY 06/22/23 07/18/23 FLUoxetine [PROzac] 30 mg PO DAILY 06/22/23 07/18/23 Fenofibrate [Lipofen] 54 mg PO DAILY 06/22/23 07/18/23 Insulin Aspart [Novolog Flexpen] 15 units SUBQ QID PRN 06/22/23 07/18/23 Insulin Glargine,Hum.rec.anlog 30 unit SUBQ HS 06/22/23 07/18/23 [Basaglar Kwikpen U-100] Omeprazole 20 mg PO BID 06/22/23 07/18/23 amLODIPine [Norvasc] 10 mg PO DAILY 06/22/23 07/18/23 metFORMIN [Glucophage] 500 mg PO BID 06/22/23 07/18/23 traMADol [Ultram] 50 mg PO Q4-6H PRN #14 tablet 07/19/23 Enoxaparin Sodium [Lovenox] 80 mg SQ BID 14 Days #22.4 ml 07/21/23 - Allergies Allergies/Adverse Reactions: Allergies Allergy/AdvReac Type Severity Reaction Status Date / Time Penicillins Allergy Unknown Verified 07/21/23 17:36 tetracycline Allergy Unknown Verified 07/21/23 17:36 morphine AdvReac Hallucinati Verified 07/21/23 17:36 ons pregabalin [From Lyrica] AdvReac Edema Verified 07/21/23 17:36 - Social History Does the pt smoke?: No Smoking Status: Never smoker Does the pt drink ETOH?: No Does the pt have substance abuse?: No - Immunizations Immunizations are current?: Yes - POLST Patient has POLST: No PD ED PE NORMAL - Vitals Vital signs reviewed: Yes - General General: Alert and oriented X 3, No acute distress, Well developed/nourished - Cardiac Cardiac: RRR, No murmur - Respiratory Respiratory: No respiratory distress, Clear bilaterally - Derm Derm: Normal color, Warm and dry - Extremities Extremities: Other (There is 1+ pedal edema in the left leg with tenderness of the left medial calf and a small area of likely superficial phlebitis with pinkness and localized tenderness on the left and medial ankle. 2+ pedal pulses with brisk cap refill and normathermic) Results - Vitals Vitals: Vital Signs - 24 hr 07/21/23 07/21/23 17:36 18:46 Temperature 36.8 C Heart Rate 75 70 Respiratory 18 15 Rate Blood Pressure 160/60 H 161/64 H O2 Saturation 100 98 Oxygen O2 Source Room air - Rads (name of study) No standard instances Relevant Findings:: Other (Reviewed ultrasound of her left leg done 07/17) PD Medical Decision Making - ED course Complexity details: reviewed old records, d/w patient, d/w family ED course: 82-year-old female presented with left leg pain and say increase in swelling after she hit her leg about 2 weeks ago. Initial x-rays were negative but an ultrasound done on 07/17 shows a left leg DVT. Initially after joint decision making she was not started on any anticoagulation other than full dose aspirin however today after talking with her oncologist today recommend that she start on anticoagulation. Medications ordered but prior authorization required. I discussed at length with the patient and her daughter, different options. I also called the [facility]'s [facility], to see what may be covered. We are able to start the patient on 80 mg twice daily of Lovenox for the next week and then the maintenance dose of Eliquis should be approved as it was oddly just the loading dose it was not approved by her insurance. The pharmacy was also out of Eliquis but will be getting more in on Wednesday and therefore the patient can fill her prescription at that time. I did review the risk versus benefits of taking this medication. I do think it will help her with her pain over the course the next few days. The patient was already prescribed tramadol which she can use as needed or Tylenol if needed. She was encouraged to keep the leg elevated avoid any localized pressure to any areas of the calf. She may benefit from compression stockings in the future. The patient was cautioned on medicati on to avoid while on anticoagulation, and of her increased bleeding risk as well as return precautions. She was quite concerned that the swelling in the leg had increased somewhat but I see no indication for repeat imaging today as it would not change the management. She is not exhibiting any chest pain or shortness of breath and is actually 1 room air this I have not pursued workup for a PE. The patient does feel comfortable giving herself injections that she already gives herself injections of insulin and she was given instructions by the nurse on injecting the Lovenox today. I have given her 7-day course of Lovenox and first dose given in the ED. If any issues getting the remainder of the eliquis prescription filled pt advised to follow up here or with PCP well before the end of her 7 day lovenox script. Departure - Departure Disposition: 01 Home, Self Care Clinical Impression: Deep vein thrombosis Qualifiers: DVT location: lower extremity Affected thrombotic vein of extremity: calf muscle vein Chronicity: acute Laterality: left Qualified Code(s): I82.462 - Acute embolism and thrombosis of left calf muscular vein Condition: Good Instructions: ED DVT, Lovenox Prescriptions: Enoxaparin Sodium [Lovenox] 80 mg SQ BID 14 Days #22.4 ml Comments: Start the lovenox for next week until the eliquis is approved by insurance. Make sure there are no breaks in therapy. Return if you develop shortness of breath or chest pain. It is okay to try taking the tramadol as well if you are uncomfortable. Since you are going to be on a blood thinner now, do not take the aspirin that was previously prescribed and I also recommend that you avoid any anti-inflammatory medicine such as Aleve, ibuprofen or similar. Forms: PCP List Discharge Date/Time: 07/21/23 18:47
[2023-07-21] MEDS: ENOXAPARIN 80 MG/0.8 ML SYRINGE SUBQ STA (18:19)
[2023-07-21 18:52] VITALS: BP 161/64; O2SAT 98
== END 2023-07-21 18:47 | disposition home or self-care (01) ==
LOC: ED 17:33
DX: I82.462 Acute embolism and thrombosis of left calf muscular vein (principal); I10 Essential (primary) hypertension; E78.00 Pure hypercholesterolemia, unspecified; E11.9 Type 2 diabetes mellitus without complications; Z79.899 Other long term (current) drug therapy; Z79.4 Long term (current) use of insulin; Z79.84 Long term (current) use of oral hypoglycemic drugs; Z79.01 Long term (current) use of anticoagulants
CPT/HCPCS: 96372; 99283

== ENCOUNTER 2023-07-26 10:45 | Outpatient (CLI) | payer MEDICARE, OTHER ==
--- NOTE | 2023-07-26 15:52 | XRAY Report ---
PROCEDURE: Foot 1-2V LT INDICATIONS: CONTUSION OF LEFT FOOT TECHNIQUE: 3 views of the foot were acquired. COMPARISON: Left foot radiograph on July 12, 2023. FINDINGS: Bones: Diffuse osseous demineralization limits sensitivity for subtle nondisplaced fracture. Within t hese limitations, no acute fracture or dislocation. Mild degenerative changes of the midfoot and fore foot with joint space narrowing and juxta-articular osteophytosis involving the dorsal talonavicular joint and throughout the IP joints. No suspicious bony lesions. Soft tissues: No tibiotalar joint effusion. Achilles tendon appears normal vascular calcifications. Small plantar and Achilles calcaneal enthesophytes. IMPRESSION: 1.No acute bony abnormality. If clinical symptoms persist, consider cross-sectional imaging for furth er evaluation. 2.Diffuse osseous demineralization. 3.Mild midfoot and forefoot degenerative changes. Reviewed by: Lisa Vergara MD on 07/26/2023 3:51 PM PDT Approved by: Lisa Vergara MD on 07/26/2023 3:51 PM PDT Station ID: [id number]
== END 2023-07-26 10:46 | disposition home or self-care (01) ==
LOC: DI.S 10:45
PROVIDERS: ATTEND Registered Nurse
DX: M19.072 Primary osteoarthritis, left ankle and foot (principal); M81.0 Age-related osteoporosis without current pathological fracture

== ENCOUNTER 2023-08-02 14:07 | Outpatient (CLI) | payer MEDICARE, OTHER ==
--- NOTE | 2023-08-02 22:16 | XRAY Report ---
PROCEDURE: Foot 3+V LT INDICATIONS: LEFT FOOT PAIN TECHNIQUE: 3 views of the foot were acquired. COMPARISON: Left foot radiographs 07/26/2023, 07/12/2023. FINDINGS: Bones: Tiny ossicle at the fourth digit proximal phalanx seen only on the oblique projection. Well-c orticated ossicle seen on the lateral projection near the distal interphalangeal joints. No dislocati ons. No suspicious bony lesions. Small plantar calcaneal spur. Bones appear osteopenic. Moderate de generative changes in the midfoot. Interphalangeal joint space loss. Osteophytosis. Soft tissues: Soft tissue swelling at the dorsal aspect of the foot. No tibiotalar joint effusion. Achilles tendon appears normal. Arterial vascular calcifications. IMPRESSION: Possible soft tissue swelling at the dorsal aspect of the foot. Possible corner fracture at the fourth digit proximal phalangeal base. Probable accessory ossicle or sequelae of remote fracture seen on the lateral projection. CT MRI could be considered for further evaluation. Reviewed by: Quentin Purdy MD on 08/02/2023 10:15 PM PDT Approved by: Quentin Purdy MD on 08/02/2023 10:15 PM PDT Station ID: [id number]
== END 2023-08-02 14:08 | disposition home or self-care (01) ==
LOC: DI.S 14:07
PROVIDERS: ATTEND Orthopaedic Surgery
DX: M79.672 Pain in left foot (principal)

== ENCOUNTER 2023-11-08 08:07 | Outpatient (CLI) | payer MEDICARE, OTHER | END 2023-11-08 08:08 | disposition home or self-care (01) | LOC: LAB.S 08:07 | PROVIDERS: ATTEND Internal Medicine Hematology & Oncology | DX: C50.912 Malignant neoplasm of unspecified site of left female breast (principal); Z17.0 Estrogen receptor positive status [ER+] | CPT/HCPCS: 36415; 80061; 82306; 83721 ==

== ENCOUNTER 2023-11-11 14:44 | Outpatient (CLI) | payer MEDICARE, OTHER ==
--- NOTE | 2023-11-12 08:16 | DEXA Report ---
PROCEDURE: Dexa Spine and/or Hip INDICATIONS: POSTMENOPAUSAL, BREAST CA TECHNIQUE: Dual energy x-ray absorptiometry (DXA) was performed on a [employer] System. Regions measur ed are the AP Spine, femoral neck, and if needed forearm. COMPARISON: None. FINDINGS: Lumbar Spine: Bone Mineral Density: 1.078 g/cm/cm,T score: -0.9. Left Femoral Neck: Bone Mineral Density: 0.569 g/cm/cm, T score: -3.4. Left Hip: Bone Mineral Density: 0.776 g/cm/cm,T score: -1.8. FRAX score not reported due to T score less than -2.5. (T score greater or equal to -1.0: NORMAL) (T score from -1.1 to -2.4: OSTEOPENIA) (T score less than or equal to -2.5 to: OSTEOPOROSIS) Impression: By WHO criteria, this patient has osteoporosis. Patients with diagnosis of osteoporosis or osteopenia should have regular bone mineral density assess ment. For those eligible for Medicare, routine testing is allowed once every 2 years. Testing frequ ency can be increased for patients who have rapidly progressing disease or for those who are receivin g medical therapy to restore bone mass. Reviewed by: Marco Antonio Boudreaux MD on 11/12/2023 8:15 AM PDT Approved by: Marco Antonio Boudreaux MD on 11/12/2023 8:15 AM PDT Station ID: [id number]
== END 2023-11-11 14:45 | disposition home or self-care (01) ==
LOC: DI 14:44
PROVIDERS: ATTEND Internal Medicine Hematology & Oncology
DX: M81.0 Age-related osteoporosis without current pathological fracture (principal); C50.912 Malignant neoplasm of unspecified site of left female breast; Z78.0 Asymptomatic menopausal state; Z17.0 Estrogen receptor positive status [ER+]